=== PATIENT | female | born 1975 | race Caucasian/White ===

== ENCOUNTER 2019-10-07 18:22 | Emergency (ER) | payer MEDICAID ==
[~2019-10-07] VITALS: Ht 160 cm; Wt 64.4 kg
[2019-10-07 18:28] VITALS: Ht 160 cm; Wt 64.4 kg
[2019-10-07 20:10] VITALS: BP 135/89
== END 2019-10-07 20:10 | disposition home or self-care (01) ==
LOC: ED 18:22
DX: M26.69 Other specified disorders of temporomandibular joint (principal); G89.29 Other chronic pain; Z90.710 Acquired absence of both cervix and uterus
CPT/HCPCS: J1885

== ENCOUNTER 2020-02-13 15:41 | Emergency (ER) | payer MEDICAID ==
[~2020-02-13] VITALS: Ht 160 cm; Wt 65.8 kg
[2020-02-13 15:49] VITALS: Ht 160 cm; Wt 65.8 kg
[2020-02-13 16:12] VITALS: BP 143/94
== END 2020-02-13 16:12 | disposition home or self-care (01) ==
LOC: ED 15:41
DX: M26.69 Other specified disorders of temporomandibular joint (principal); K02.9 Dental caries, unspecified; Z90.710 Acquired absence of both cervix and uterus
CPT/HCPCS: J1885